=== PATIENT | male | born 1960 | race Caucasian/White ===

== ENCOUNTER 2020-02-19 10:58 | Inpatient (IN) ==
[~2020-02-19 10:58] MED LIST: Povidone-Iodine 45 ML, Sodium Chloride IRRigation 1,000 ML IR ONE
[2020-02-19] MEDS ORDERED: CeFAZolin Syr 2,000MG/20 ML 2,000 MG/20 ML SYRINGE IVPB ONE (11:11)
[2020-02-19] MEDS ORDERED: Vancomycin 1,000 MG VIAL ONE (11:13)
[2020-02-19] MEDS ORDERED: Ethanol\\Acetic Acid\\Na Ace\\Ben 1,000 ML IRRIG.SOLN IR ONE (11:14)
[2020-02-19] MEDS ORDERED: Ringers Solution, Lactated 1,000 ML IVC SCH ×2 (11:15→15:42)
[2020-02-19] MEDS ORDERED: Ondansetron 4 MG/2 ML VIAL ONE (11:24)
[2020-02-19] MEDS ORDERED: Dexamethasone 4 MG/ML VIAL ONE ×2 (11:24→12:20)
[2020-02-19] MEDS ORDERED: *HR* Propofol 200 MG/20 ML VIAL IVP ONE (11:24)
[2020-02-19] MEDS ORDERED: Lidocaine HCL 4 ML Topical Solution (Laryng-O-Jet Kit Sterile Pak) TP ONE (11:24)
[2020-02-19] MEDS ORDERED: Lidocaine -MPF 2% 2 ML VIAL ONE (11:24)
[2020-02-19] MEDS ORDERED: *HR* Succinylcholine 200 MG/10 ML VIAL IVP ONE (11:24)
[2020-02-19] MEDS ORDERED: Promethazine 6.25 MG in Water for inj. (sterile) 20 ML IVPB PRN (11:29)
[2020-02-19] MEDS ORDERED: *HR* OxyCODONE Immed Rel 5 MG TABLET PO PRN ×2 (11:29→15:42)
[2020-02-19] MEDS ORDERED: *HR* HYDROmorphone PF 0.5 MG/0.5 ML SYRINGE IVP PRN (11:29)
[2020-02-19] MEDS ORDERED: Ondansetron 4 MG/2 ML VIAL IVP PRN ×2 (11:29→15:42)
[2020-02-19] MEDS ORDERED: Ropivacaine/PF 0.5% 30 ML VIAL ONE (12:19)
[2020-02-19] MEDS ORDERED: ROPIVACAINE/PF/NS 0.25% 1 EACH SYRINGE INTRAART ONE (12:19)
[2020-02-19] MEDS ORDERED: *HR* Midazolam HCl 2 MG/2 ML VIAL ONE (12:20)
[2020-02-19] MEDS ORDERED: *HR* FentaNYL (PF) 100 MCG/2 ML VIAL ONE ×2 (12:20→13:13)
[2020-02-19] MEDS ORDERED: *HR* Labetalol 20 MG/4 ML SYRINGE IVP ONE (14:00)
[2020-02-19] MEDS: *HR* Labetalol 20 MG/4 ML SYRINGE IVP PRN ×3 (14:13→14:30)
[2020-02-19 14:33] LABS: Hemoglobin 13.6 g/dL (12.9-16.9)
[2020-02-19] MEDS ORDERED: Sennosides 8.6 MG TABLET PO PRN (15:42)
[2020-02-19] MEDS ORDERED: *HR* Dextrose 50 % in Water (Vial) 50 ML VIAL IVP PRN (15:42)
[2020-02-19] MEDS ORDERED: MOM Conc 10 ML UD.LIQ PO PRN (15:42)
[2020-02-19] MEDS ORDERED: D5% in Water 1,000 ML IVC PRN (15:42)
[2020-02-19] MEDS ORDERED: *HR* OxyCODONE/APAP 5/325 TABLET PO PRN (15:42)
[2020-02-19] MEDS ORDERED: Naloxone 0.4 MG/ML INJ IVP PRN (15:42)
[2020-02-19] MEDS ORDERED: Dextrose Gel 15 GM/37.5 ML TUBE PO PRN ×2 (15:42)
[2020-02-19] MEDS ORDERED: CeFAZolin 2 GM/120 ML BAG IVPB SCH (16:00)
[2020-02-19 16:23] VITALS: BP 164/88
[2020-02-19] MEDS ORDERED: Insulin LISPRO 300 UNITS/3 ML VIAL SQ SCH ×2 (16:30→21:00)
[2020-02-19] MEDS ORDERED: *HR* Enoxaparin 30 MG/0.3 ML SYRINGE SQ SCH ×2 (18:00)
[2020-02-19] MEDS ORDERED: allopurinoL 100 MG TABLET PO SCH (21:00)
[2020-02-20] MEDS ORDERED: Fenofibrate 54 MG TABLET PO SCH (09:00)
== END 2020-02-19 18:16 | disposition home or self-care (01) | DRG 322 ==
LOC: SAMDAY 10:58 → EDSDCBED 10:59 → CDU 11:00 → 3NENU 15:22 → SAMDAY 18:16 → 3NENU 02-25 08:07
PROVIDERS: ADMIT Orthopaedic Surgery; ATTEND Orthopaedic Surgery